=== PATIENT | male | born 1970 | race Caucasian/White ===

== ENCOUNTER 2020-05-10 06:20 | Day surgery (SDC) | payer OTHER ==
[2020-05-09 11:16] VITALS: BP 135/84
[2020-05-09 11:59] LABS: BASOPHIL # 0.1 10^3/uL (0.0-0.1); BASOPHIL % 0.9 % (0.0-0.2); EOSINOPHIL # 0.1 10^3/uL (0.0-0.2); LYMPHOCYTES # 1.52 10^3/uL1 (1.0-4.8); MEAN CORP HGB 21.3 pg (26-34); MONOCYTES # 0.9 10^3/uL (0.3-0.8); MONOCYTES % 12.6 % (5.0-12.0); NEUTROPHIL # 4.4 10^3/uL (1.8-7.7); NEUTROPHILS % 63.4 % (41.0-85.0); PLATELET COUNT 276 10^3/uL (150-400); RED CELL DISTRIBUTION WIDTH 20.7 % (11.5-14.5)
[2020-05-09 12:20] LABS: CALCIUM 8.3 mg/dL (8.4-10.5)
[~2020-05-10] VITALS: Ht 180.3 cm; Wt 121.6 kg
[2020-05-10] VITALS (8 sets, daily range): BP systolic 116–130; BP diastolic 68–81
[~2020-05-10 06:20] MED LIST: CELE100C PO; LACTATED RINGERS 1,000 ML IV SCH; LACTATED RINGERS 1,000 ML ONE; NAPR-636 PO
[2020-05-10] MEDS ORDERED: SODIUM CHLORIDE IRR BOTTLE IR ONE (07:33)
[2020-05-10] MEDS ORDERED: NS 3000ML IRR IR ONE (07:33)
[2020-05-10] MEDS ORDERED: XYLOCAINE 1%-EPI 1:100,000 ONE (07:33)
[2020-05-10] MEDS ORDERED: DILAUDID ONE (07:36)
[2020-05-10] MEDS ORDERED: VERSED ONE (07:37)
[2020-05-10] MEDS ORDERED: SUBLIMAZE ONE ×2 (07:37→08:06)
[2020-05-10] MEDS ORDERED: TORADOL ONE (07:39)
[2020-05-10] MEDS ORDERED: ZOFRAN ONE (07:39)
[2020-05-10] MEDS ORDERED: LIDOCAINE 2% VIAL ONE (07:39)
[2020-05-10] MEDS ORDERED: DECADRON ONE (07:40)
[2020-05-10] MEDS ORDERED: DIPRIVAN IV ONE (07:40)
--- NOTE | 2020-05-10 09:22 | OPH ---
DATE OF SURGERY: 05/10/2020 PREOPERATIVE DIAGNOSIS: Medial meniscal tear of the left knee. POSTOPERATIVE DIAGNOSIS: Medial meniscal tear of the left knee. OPERATIVE PROCEDURE: Arthroscopy of the left knee with partial medial meniscectomy. SURGEON: Zaire Duran MD ANESTHESIA: LMA. TOURNIQUET TIME: 14 minutes at 300 mmHg. DRAINS: None. BLOOD LOSS: 5 mL. DESCRIPTION OF INDICATIONS: The patient is a 49-year-old male who slipped on the __ on 04/15/2020. The patient has had painful popping and locking and catching about his left knee ever since then. He had previous ACL reconstruction many years ago and had no previous problems with the knee. Exam showed full range of motion of the knee, good medial and lateral stability. He had tenderness about the medial joint line as well as a positive Willie test. Plain x-rays were negative for any fractures or arthritic changes, but his MRI scan showed a radial tear of the posterior horn of his medial meniscus. He was taken to the operating room for the above procedures because of the painful mechanical symptoms. DESCRIPTION OF PROCEDURE: The patient was placed on the operating table in the supine position. LMA anesthetic was induced without difficulty. The patient had a well-padded tourniquet placed around the left thigh. His left lower extremity was then sterilely prepped and draped. The patient had the arthroscopy portals made superolateral, anterolateral and anteromedial. The outflow cannula was superolateral. Arthroscope was anterolateral and the probe was anteromedial. The suprapatellar pouch did not show any loose bodies or synovial hypertrophy. There were minimal arthritic changes about his patellofemoral joint. There was no exposed subchondral bone about the patellofemoral joint with some mild chondromalacia. Medial and lateral gutters were clear of any osteophytes or loose bodies, no synovitis. The medial compartment was entered. He had some small areas of grade 2 chondromalacia, but no large fragments of loose articular cartilage. No exposed subchondral bone. He had a radial tear of the posterior horn of his medial meniscus that was displaced anteriorly. The articular cartilage about the medial tibial plateau was normal. Using a shaver, a partial meniscectomy was performed of the posterior horn of his medial meniscus. The intercondylar notch was viewed. The anterior and posterior cruciate ligaments were intact. Knee was then placed in a [id number] position. The lateral compartment was viewed. His lateral meniscus was normal. The lateral articular cartilage was normal proximally and distally. The arthroscopic equipment was removed from the knee. The portal tracts were closed with 3-0 Ethilon in an interrupted manner. Compressive dressing was applied consisting of 4 x 4s, ABD pad, cast padding and Kameron wrap. The patient was extubated in the operating room. His tourniquet was released. He was sent to recovery in stable condition. Zaire Duran MD DR: ALIS/buck JOB# [id number]
[2020-05-10] MEDS ORDERED: TRAM50TA PO (09:55)
== END 2020-05-10 10:20 | disposition home or self-care (01) ==
LOC: SDC 06:20
PROVIDERS: ATTEND Orthopaedic Surgery
DX: S83.242A Other tear of medial meniscus, current injury, left knee, initial encounter (principal); F17.200 Nicotine dependence, unspecified, uncomplicated; E66.9 Obesity, unspecified; Z98.84 Bariatric surgery status; Z98.890 Other specified postprocedural states; Z79.899 Other long term (current) drug therapy; W00.0XXA Fall on same level due to ice and snow, initial encounter; Y93.89 Activity, other specified; Y92.89 Other specified places as the place of occurrence of the external cause; Z68.37 Body mass index [BMI] 37.0-37.9, adult
CPT/HCPCS: 29881; 36415; 80053; 85025; A4217 ×2; A4649 ×3; J1100; J1170; J1885; J2001; J2250; J2405; J3010 ×2; J3490; J7120